=== PATIENT | female | born 1985 | race Caucasian/White ===

== ENCOUNTER 2023-12-11 05:57 | Emergency (ER) | payer OTHER ==
[2023-12-11 06:08] VITALS: BP 136/92; PULSE 94; RESP 18; TEMP 98.4; BMI 32.8
[2023-12-11 07:51] LABS: BASO % 0.5 % (0-2.0); EOS % 0.6 % (0-4.5); HEMATOCRIT 39.9 % (32.4-45.2); HEMOGLOBIN 13.8 GM/dL (10.7-15.3); LYMPH % 23.9 % (8-40); MCH 29.4 pg (25.7-33.7); MCHC 34.6 g/dl (32.0-36.0); MEAN CELL VOLUME 84.9 fl (80-96); MEAN PLT VOLUME 7.4 fl (7.5-11.1); MONO % 5.8 % (3.8-10.2); NEUT % 69.2 % (42.8-82.8); PLATELET COUNT 290 10^3/uL (134-434); RDW 13.3 % (11.6-15.6)
[2023-12-11 07:54] LABS: INR 1.13 (0.83-1.09); PROTHROMBIN TIME (PATIENT) 13.1 SEC (9.7-13.0)
[2023-12-11 07:56] LABS: ACTIVATED PTT 26.5 SECONDS (25.2-36.5)
[2023-12-11 08:07] LABS: EPI CELLS 14 /uL (0-25.1); HCG,QUALITATIVE URINE Borderline hCG level; HYALINE CASTS 0 /uL (0-3.1); PH,URINE 7.5 (5.0-8.0); URINE APPEARANCE CLEAR; URINE BACTERIA 182 /uL (0-1359); URINE BILIRUBIN NEGATIVE (NEGATIVE); URINE COLOR YELLOW; URINE GLUCOSE (UA) NEGATIVE (NEGATIVE); URINE KETONE NEGATIVE (NEGATIVE); URINE LEUK ESTERASE TRACE (NEGATIVE); URINE NITRITE NEGATIVE (NEGATIVE); URINE PROTEIN NEGATIVE (NEGATIVE); URINE RBC 1944 /uL (0-23.9); URINE UROBILINOGEN 0.2 mg/dL (0.2-1.0); URINE WBC 19 /uL (0-25.8)
[2023-12-11 08:12] LABS: ALBUMIN 3.9 g/dl (3.4-5.0); BLOOD UREA NITROGEN 10.3 mg/dL (7-18); CALCIUM 8.4 mg/dL (8.5-10.1)
[2023-12-11 08:15] LABS: CREATININE 0.6 mg/dL (0.55-1.3)
[2023-12-11 08:16] LABS: BILIRUBIN,TOTAL 0.2 mg/dL (0.2-1); TOT PROT 7.4 g/dl (6.4-8.2)
[2023-12-11] MEDS ORDERED: ACETAMINOPHEN 325 MG TABLET (FP) PO ONE (12:41)
[2023-12-11] MEDS ORDERED: ACETAMINOPHEN 325 MG TABLET (FP) ONE (12:51)
== END 2023-12-11 12:58 | disposition home or self-care (01) ==
LOC: JER 05:57
DX: O03.9 Complete or unspecified spontaneous abortion without complication (principal); J10.1 Influenza due to other identified influenza virus with other respiratory manifestations; R10.30 Lower abdominal pain, unspecified; Z20.822 Contact with and (suspected) exposure to COVID-19
CPT/HCPCS: 0241U-QW; 36415; 76817-TC; 80053; 81003; 83735; 84702; 84703; 85025; 85610; 85730; 86850; 86900; 86901; 87086; 99284-25